=== PATIENT | female | born 1985 | race African-American/Black ===

== ENCOUNTER 2023-12-21 18:52 | Emergency (ER) | payer MEDICAID ==
[~2023-12-21] VITALS: Ht 165.1 cm; Wt 108.9 kg
[2023-12-21 19:07] VITALS: BP 138/96; PULSE 91; RESP 18; TEMP 97; O2SAT 100
[2023-12-21 20:10] LABS: FLU A ANTIGEN negative (NEGATIVE); FLU B ANTIGEN NEGATIVE (NEGATIVE)
[2023-12-21] MEDS ORDERED: IBUP-2213 PO (21:17)
[2023-12-21] MEDS ORDERED: LORA1T1237 PO (21:17)
[2023-12-21] MEDS ORDERED: PROM118S5 PO (21:17)
[2023-12-21 21:29] VITALS: BP 138/96; PULSE 91; RESP 18; TEMP 97; O2SAT 100
== END 2023-12-21 21:29 | disposition home or self-care (01) ==
LOC: MED 18:52
DX: J06.9 Acute upper respiratory infection, unspecified (principal); Z20.822 Contact with and (suspected) exposure to COVID-19; Z79.899 Other long term (current) drug therapy
CPT/HCPCS: 99283